=== PATIENT | female | born 1940 | race Caucasian/White ===

== ENCOUNTER → 2017-10-17 | Outpatient (CLI) | payer MEDICARE ==
[~2017-10-17] MED LIST: VITA1000 PO; ZANT150T2 PO
[2017-10-17 09:54] LABS: AUTOMATED NEUTROPHIL # 3.2 TH/MM3 (1.8-7.7); BASOPHIL # 0.1 TH/MM3 (0-0.2); BASOPHIL % 1.3 % (0.0-2.0); EOSINOPHIL # 0.3 TH/MM3 (0-0.4); EOSINOPHIL % 5.2 % (0.0-4.0); HEMATOCRIT 40.1 % (35.0-46.0); HEMOGLOBIN 13.8 GM/DL (11.6-15.3); LYMPHOCYTE # 1.7 TH/MM3 (1.0-4.8); MEAN CORPUSCULAR HEMOGLOBIN 30.2 PG (27.0-34.0); MEAN CORPUSCULAR HGB CONC 34.3 % (32.0-36.0); MEAN PLATELET VOLUME 8.2 FL (7.0-11.0); MONO % 9.4 % (0.0-8.0); MONOCYTE # 0.5 TH/MM3 (0-0.9); NEUT % 55.1 % (16.0-70.0); PLATELET COUNT 256 TH/MM3 (150-450); RED BLOOD COUNT 4.56 MIL/MM3 (4.00-5.30); RED CELL DISTRIBUTION WIDTH 14.9 % (11.6-17.2); WHITE BLOOD COUNT 5.7 TH/MM3 (4.0-11.0)
[2017-10-17 09:59] LABS: PROTHROMBIN TIME - PATIENT 10.1 SEC (9.8-11.6)
[2017-10-17 10:00] LABS: BILIRUBIN, URINE NEG (NEG); BLOOD, URINE NEG (NEG); GLUCOSE,URINE NEG (NEG); KETONE, URINE NEG (NEG); MUCUS URINE FEW /lpf (OCC); NITRITE,URINE NEG (NEG); PH, URINE 6.5 (5.0-8.5); SQUAMOUS EPITHELIAL CELL URINE 10 /hpf (0-5); URINE COLOR LIGHT-YELLOW (YELLW/STRAW); URINE LEUKOCYTE ESTERASE NEG (NEG)
--- NOTE | 2017-10-17 10:11 | RADRPT ---
EXAM DATE/TIME: 10/17/2017 09:41 [place] COMPARISON: No previous studies available for comparison. INDICATIONS : Evaluate for pneumonia, pneumothorax or communicable disease. Pre op colon resection. MEDICAL HISTORY : Carcinoma, breast. radiation therapy SURGICAL HISTORY : Hysterectomy. left lumpectomy ENCOUNTER: Initial ACUITY: 1 day PAIN SCORE: 0/10 LOCATION: Bilateral chest FINDINGS: There are mild, chronic interstitial changes. The heart and mediastinal contours are within normal li mits. The visualized osseous structures are grossly intact. CONCLUSION: 1. Chronic appearing interstitial changes. No acute abnormality. Philip Cano MD on October 17, 2017 at 10:08 Board Certified Radiologist. This report was verified electronically.
[2017-10-17 10:15] LABS: BICARBONATE 27.5 MEQ/L (21.0-32.0); CALCIUM 9.9 MG/DL (8.5-10.1); CREATININE 1.3 MG/DL (0.50-1.00)
--- NOTE | 2017-10-17 20:32 | EKG ---
Date Performed: 10/17/2017 Time Performed: 08:57:31 PTAGE: 77 years EKG: Sinus rhythm LOW QRS VOLTAGE IN PRECORDIAL LEADS BORDERLINE ECG Since the prior tracing, there has been no signif icant change PREVIOUS TRACING : 12/14/98 @1129 DOCTOR: Reinier Russo Interpretating Date/Time 10/17/2017 20:25:30
== END ==
LOC: CPRE 08:36
PROVIDERS: ATTEND Colon & Rectal Surgery
DX: Z01.810 Encounter for preprocedural cardiovascular examination (principal); Z01.818 Encounter for other preprocedural examination; Z01.812 Encounter for preprocedural laboratory examination; K57.32 Diverticulitis of large intestine without perforation or abscess without bleeding; R94.31 Abnormal electrocardiogram [ECG] [EKG]; Z79.01 Long term (current) use of anticoagulants
CPT/HCPCS: 36415; 71046; 80048; 81001; 85025; 85610; 85730; 93005

== ENCOUNTER 2017-10-24 11:37 | Inpatient (IN) | payer MEDICARE ==
[~2017-10-24] VITALS: Ht 165.1 cm; Wt 77.0 kg
[2017-10-24] VITALS (8 sets, daily range): BP systolic 111–128; BP diastolic 52–58; PULSE 64–89; RESP 16–20; TEMP 98–98.7; O2SAT 94–99
[2017-10-24] MEDS ORDERED: LACTATED RINGER'S 1000 ML INJ 2,000 ML IV ONE (12:00)
[2017-10-24] MEDS ORDERED: PHENYLEPH/NS 1000 MCG/10 ML SYR IV ONE (12:00)
[2017-10-24] MEDS ORDERED: ESMOLOL HCL 100 MG/10 ML VIAL IV ONE (12:00)
[2017-10-24] MEDS ORDERED: ROCURONIUM INJ 50 MG/5 ML SYRINGE IV PUSH ONE (12:00)
[2017-10-24] MEDS ORDERED: NEOSTIGMINE 5 MG/5 ML SYRINGE IV PUSH ONE (12:00)
[2017-10-24] MEDS ORDERED: PROPOFOL 200 MG/20 ML AMP IV ONE (12:00)
[2017-10-24] MEDS ORDERED: PHENYLEPHRINE HCL 10 MG/ML VIAL IV ONE (12:00)
[2017-10-24] MEDS ORDERED: LIDOCAINE HCL 1% PF 5 ML SYRINGE OTHER ONE (12:00)
[2017-10-24] MEDS ORDERED: DEXAMETHASONE SOD PHOS 4 MG/ML VIAL IV ONE (12:00)
[2017-10-24] MEDS ORDERED: ONDANSETRON HCL 4 MG/2 ML VIAL IV ONE (12:00)
[2017-10-24] MEDS ORDERED: GLYCOPYRROLATE 1 MG/5 ML SYRINGE IV PUSH ONE (12:00)
[2017-10-24] MEDS ORDERED: metroNIDAZOLE 500 MG INJ 100 ML IV ONE (12:32)
[2017-10-24] MEDS ORDERED: ceFAZolin INJ 1,000 MG VIAL ONE (12:32)
[2017-10-24] MEDS ORDERED: SODIUM CHLORIDE 0.9% INJ 100 ML ONE (12:32)
[2017-10-24] MEDS ORDERED: ALVIMOPAN 12 MG CAPSULE ONE (12:32)
[2017-10-24] MEDS ORDERED: ACETAMINOPHEN 1000 MG/100 ML 100 ML IV ONE (13:20)
[2017-10-24] MEDS ORDERED: Post-op Orders (for Pharmacy) XX ONE (16:00)
[2017-10-24] MEDS ORDERED: POTASSIUM CHLOR 40 MEQ PREMIX 100 ML IV PRN (16:00)
[2017-10-24] MEDS ORDERED: NALOXONE HCL 0.4 MG/ML AMP IV PUSH PRN (16:00)
[2017-10-24] MEDS ORDERED: KETOROLAC TROMETHAMINE 30 MG/ML (IVP) VIAL IVP PRN (16:00)
[2017-10-24] MEDS ORDERED: MORPHINE SULFATE 30 MG/30 ML PCA IV SCH (16:00)
[2017-10-24] MEDS ORDERED: BENZOCAINE 6 MG/MENTHOL 10 MG LOZENGE BUCCAL PRN (16:00)
[2017-10-24] MEDS ORDERED: ONDANSETRON HCL 4 MG/2 ML VIAL IV PUSH PRN (16:00)
[2017-10-24] MEDS ORDERED: POTASSIUM CHLOR 20 MEQ PREMIX 100 ML IV PRN (16:00)
[2017-10-24] MEDS ORDERED: SODIUM CHLORIDE 0.9% FLUSH 10 ML FLUSH IV FLUSH PRN (16:00)
[2017-10-24] MEDS ORDERED: ZOLPIDEM TARTRATE 5 MG TAB PO PRN (16:00)
[2017-10-24] MEDS ORDERED: ENALAPRILAT 1.25 MG/ML VIAL IV PUSH PRN (16:00)
[2017-10-24] MEDS ORDERED: MIDAZOLAM HCL 2 MG/2 ML VIAL ONE (16:20)
[2017-10-24] MEDS ORDERED: *morphine SULFATE 4 MG/ML PERIprocedure ONLY ONE ×2 (16:32→17:35)
[2017-10-24 16:42] LABS: AUTOMATED NEUTROPHIL # 8.3 TH/MM3 (1.8-7.7); BASOPHIL # 0.1 TH/MM3 (0-0.2); BASOPHIL % 0.6 % (0.0-2.0); EOSINOPHIL % 0.4 % (0.0-4.0); HEMATOCRIT 34.8 % (35.0-46.0); HEMOGLOBIN 12.1 GM/DL (11.6-15.3); LYMPH % 7.2 % (9.0-44.0); LYMPHOCYTE # 0.7 TH/MM3 (1.0-4.8); MEAN CELL VOLUME 87.7 FL (80.0-100.0); MEAN CORPUSCULAR HEMOGLOBIN 30.4 PG (27.0-34.0); MEAN CORPUSCULAR HGB CONC 34.6 % (32.0-36.0); MEAN PLATELET VOLUME 7.8 FL (7.0-11.0); MONO % 8.3 % (0.0-8.0); MONOCYTE # 0.8 TH/MM3 (0-0.9); NEUT % 83.5 % (16.0-70.0); PLATELET COUNT 210 TH/MM3 (150-450); RED BLOOD COUNT 3.97 MIL/MM3 (4.00-5.30)
[2017-10-24 17:07] LABS: BICARBONATE 24.6 MEQ/L (21.0-32.0); CALCIUM 8.4 MG/DL (8.5-10.1); CREATININE 1.15 MG/DL (0.50-1.00)
[2017-10-24] MEDS: D5-LR + KCL 20 MEQ INJ 1,000 ML IV SCH ×2 (17:18→21:37)
[2017-10-24] MEDS: METOCLOPRAMIDE HCL 10 MG/2 ML VIAL IVS SCH (17:38)
[2017-10-24] MEDS ORDERED: DO NOT ADM ANY ANTICOAGULANT DRUGS PRN (19:30)
[2017-10-24] MEDS: FUROSEMIDE 20 MG/2 ML VIAL IV PUSH SCH (20:27)
[2017-10-24] MEDS: SODIUM CHLORIDE 0.9% FLUSH 10 ML FLUSH IV FLUSH SCH (20:27)
[2017-10-24] MEDS: ceFAZolin 2 GM PREMIX 50 ML IV SCH (21:37)
[2017-10-24] MEDS: metroNIDAZOLE 500 MG INJ 100 ML IV SCH (21:38)
[2017-10-24] MEDS: PCA - TOTAL MG MORPHINE DELIVERED PER SHIFT SCH ×2 (22:00→22:10)
[2017-10-25] VITALS (20 sets, daily range): BP systolic 105–118; BP diastolic 53–64; PULSE 74–103; RESP 14–20; TEMP 96.5–98.6; O2SAT 91–94
[2017-10-25] MEDS: METOCLOPRAMIDE HCL 10 MG/2 ML VIAL IVS SCH ×4 (01:31→18:24)
[2017-10-25] MEDS: ceFAZolin 2 GM PREMIX 50 ML IV SCH ×3 (05:25→19:44)
[2017-10-25] MEDS: metroNIDAZOLE 500 MG INJ 100 ML IV SCH ×3 (05:26→19:44)
[2017-10-25] MEDS: D5-LR + KCL 20 MEQ INJ 1,000 ML IV SCH ×4 (05:27→23:00)
[2017-10-25] MEDS: PCA - TOTAL MG MORPHINE DELIVERED PER SHIFT SCH ×3 (06:00→19:55)
[2017-10-25 06:09] LABS: AUTOMATED NEUTROPHIL # 8.1 TH/MM3 (1.8-7.7); BASOPHIL % 0.2 % (0.0-2.0); HEMOGLOBIN 11.1 GM/DL (11.6-15.3); LYMPHOCYTE # 0.6 TH/MM3 (1.0-4.8); MEAN CELL VOLUME 88.3 FL (80.0-100.0); MEAN CORPUSCULAR HEMOGLOBIN 30.7 PG (27.0-34.0); MEAN CORPUSCULAR HGB CONC 34.7 % (32.0-36.0); MEAN PLATELET VOLUME 8.1 FL (7.0-11.0); MONO % 11.9 % (0.0-8.0); MONOCYTE # 1.2 TH/MM3 (0-0.9); NEUT % 81.9 % (16.0-70.0); PLATELET COUNT 206 TH/MM3 (150-450); RED BLOOD COUNT 3.62 MIL/MM3 (4.00-5.30); WHITE BLOOD COUNT 9.9 TH/MM3 (4.0-11.0)
[2017-10-25 06:16] LABS: BICARBONATE 27.6 MEQ/L (21.0-32.0); CALCIUM 8.2 MG/DL (8.5-10.1); CREATININE 1.61 MG/DL (0.50-1.00)
[2017-10-25] MEDS: FUROSEMIDE 20 MG/2 ML VIAL IV PUSH SCH ×2 (09:53→19:44)
[2017-10-25] MEDS: SODIUM CHLORIDE 0.9% FLUSH 10 ML FLUSH IV FLUSH SCH ×2 (09:53→19:50)
[2017-10-25] MEDS: PANTOPRAZOLE SODIUM 40 MG VIAL IVP SCH (09:53)
[2017-10-25] MEDS: ALVIMOPAN 12 MG CAPSULE PO SCH ×2 (09:54→19:43)
--- NOTE | 2017-10-25 11:38 | MP ---
cc: JAY RUSSELL DATE OF SURGERY 10/24/2017 PREOPERATIVE DIAGNOSIS Diverticulitis. POSTOPERATIVE DIAGNOSIS Diverticulitis. PROCEDURE Cystoscopy, bilateral ureteral catheter insertion. SURGEON Drew. ANESTHESIA General endotracheal tube. FLUIDS 100 cc crystalloid. ESTIMATED BLOOD LOSS No blood loss. COMPLICATIONS No complications. INDICATION FOR PROCEDURE This is a 77-year-old female with diverticulitis, elected to undergo colectomy by Dr. Trevizo. Request was made for bilateral ureteral catheter insertion. DETAILS OF PROCEDURE The patient was brought to the operating room, identified by myself and placed in the dorsal lithotomy position. She was prepped and draped in the usual sterile fashion, received pre-procedure antibiotics and general endotracheal tube anesthesia was administered. A 22 Azeri cystoscope was inserted in the bladder. Pancystoscopy did not reveal any abnormalities. The left ureteral orifice was identified. A 5 Azeri open-ended catheter was inserted in the left ureteral orifice without difficulty. This was repeated on the right side. The Anne was inserted and the catheters were attached to the Anne. She tolerated the procedure well. Jay Russell SWT/BT /2:09 PM /11:26 AM
--- NOTE | 2017-10-25 13:43 | MP ---
cc: JANIE TREVIZO M.D., UKONU O. 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 PROCEDURE 1. Sigmoid colectomy low anterior resection 2. Mobilization of the splenic flexure 3. Omental flap 4. Colonic washout 5. Intraoperative colonoscopy 6. Small bowel resection SURGEON Dr. Trevizo NEGATIVE TURNER APPRENTICE Dr. Quevedo ANESTHESIA General endotracheal ESTIMATED BLOOD LOSS 300 cc OPERATING TIME One hour and 50 minutes. OPERATIVE FINDINGS This patient had a complex case of diverticulitis back in early July of 2017. At that time, we were able to get her through that bout of diverticulitis with what appeared to be a pericolonic abscess and possibly a small bowel fistula. She recovered nicely without any problems post treatment and her CT scans improved and no obvious fistula between her small bowel and colon was seen, nor a fistula between the bladder and the colon. She did have significant diverticular disease, however and she had tethering of that small bowel loop to the colon on the CT scan and she had an incomplete colonoscopy due to her diverticular disease and I felt that elective surgery was indicated even though this was her first attack of diverticulitis. At surgery, she was found to have an extremely inflamed loop of sigmoid colon stuck densely to the dome of the bladder and a loop of small bowel stuck in a small portion densely to this process. That was dissected free and after probing the serosa, it appeared as if there could have been a fistula at some point, although no fistula was definitely identified. Once the sigmoid colon was fully removed, we did inspect the specimen and there did appear to be a giant diverticula present in the sigmoid colon which could have accounted for what appeared to be an abscess on her initial CT scans. Nevertheless, there was no bladder fistula present. Dr. Travis Russell did bilateral ureteral catheters and cystoscopy on her. The full left colon and splenic flexure were mobilized and a omental flap was mobilized and placed over the pelvis between the bladder and the anastomosis at the end of the procedure. The remainder of the exploration of the abdominal cavity including the liver, the gallbladder, stomach, colon and small bowel was all apparently normal. A short small bowel resection of approximately 2 inches was done of this area where we felt that there was a possible small bowel fistula at one point. We felt that it was safest to remove this area. The gallbladder was distended, but no stones could be palpated. OPERATIVE TECHNIQUE The patient was placed on the table in the supine position. After adequate general endotracheal anesthesia, the legs were placed in the perineal lithotomy position. The abdomen and perineum were prepped and draped in the usual manner. A transverse infraumbilical skin incision was made and carried down through the subcutaneous tissue and the rectus muscles and the peritoneal cavity was entered with the above-mentioned findings. The sigmoid colon was mobilized along its peritoneal reflection and the left ureter was identified and protected at all times. The descending colon was likewise mobilized up to and including the splenic flexure. The splenic flexure was mobilized and the lesser sac was entered and the omentum was from the transverse colon with electrocautery. There was a small tear approximately 1 cm in the tip of the capsule of the spleen and this was treated with electrocautery and a piece of hemostatic agent was placed on that area and no further bleeding occurred from that. We identified the diverticular segment and it was quite stuck to the bladder and the small bowel. The small bowel was dissected free of this and inspected and there was no immediate fistula definitely seen at that time. We then dissected the sigmoid colon from the dome of the bladder with electrocautery not entering the colon or the bladder. There was a small 1-cm abscess that was seen and aspirated. Other than that, no gross abscesses were found. The sigmoid colon was dissected free of the left ovary and tube as well and off of the left ureter which contained the ureteral catheter. Once this was free, the superior hemorrhoidal vessels were doubly clamped, cut and doubly ligated along with the inferior mesenteric vein. Once that was done, the retrorectal space was entered and the dissection was taken down posterior to the rectum to the pelvic floor and then the lateral pelvic peritoneum was incised bilaterally. The anterior cul-de-sac was not dissected or developed and the anastomosis in the rectum was done in the upper portion of the rectum. The upper portion of the rectal mesentery was clamped, cut and ligated and the rectum was cleared and a pursestring stapler was placed and the rectum was divided. Once this was done, a choice for division of the sigmoid colon was done and the remainder of the mesentery was clamped, cut and ligated and the sigmoid colon was cleared. The quality of the sigmoid colon, at this point, was quite good. Pursestring stapling device was placed on the colon and the colon was divided and the specimen was removed from the table. As mentioned above, there is no definite fistula seen, however, there was a large diverticulum present in the sigmoid colon. Next, the sigmoid colon and transverse colon and the ascending colon were cleaned with 500 cc of saline solution and aspirated until the colon was clean. The anvil of the Ethicon 29 EEA was then placed in the sigmoid colon and the proximal pursestring was tied. Dr. Quevedo then went below and placed the EEA instrument transanally and it was brought out, however, the proximal 2 cm of the rectum was too narrow to allow the 29 EEA and that proximal 2 cm of rectum was removed and another pursestring was placed allowing the EEA instrument to be placed in the rectum. Dr. Quevedo then placed the EEA instrument there. The distal pursestring was tied and the instrument was connected, closed and fired creating a circular anastomosis. There was no tension on the anastomosis and blood supply was excellent. Dr. Quevedo then did colonoscopy to the cecum and the colon was normal. No polyps, no carcinoma seen. We then leak tested the anastomosis with air in the rectum with saline solution in the pelvis and no air leaks were identified. Again, the hemostasis was excellent throughout and was controlled with electrocautery and a ligature. The pelvis was irrigated thoroughly with 2-3 liters of saline solution, aspirated dry and the previously mobilized omentum was brought down the left colic gutter and placed in the pelvis between the bladder dissection and the colorectal anastomosis. We then turned our attention once again to the small bowel that had been stuck to this process and we reinspected and it did appear to be a subserosal tract, but no stool came from this. I decided to resect this area and the mesentery of the small bowel was divided next to the small bowel for approximately 2 inches and then the proximal small bowel was divided with a MIGUEL stapling device and the distal small bowel was divided between Christiano clamps and a 2 inches segment of small bowel was removed. Upon inspection after the case, it appeared as if there may have been a fistula to the mucosa of that small bowel, although it was not definitive. Nevertheless, a functional end-to-end anastomosis was done with an Ethicon MIGUEL 55 stapling device and the enterotomy was closed with a TX 60 blue staple height stapler. The mesentery was approximated with 3-0 Vicryl suture. Once this was done, the abdominal cavity was irrigated thoroughly again with saline solution, aspirated dry and inspected for hemostasis. The bowels were replaced the abdominal cavity in an water pollution scientist manner and the abdominal cavity was then closed in layers using a running double-stranded #1 PDS for the posterior rectus sheath. The muscle layer was irrigated thoroughly with saline solution, aspirated dry and then the anterior rectus sheath was closed with a double-stranded #1 PDS as well. The skin was closed with skin danielle because of the infectious nature of this process and it should be mentioned that a flat Wilman drain had been previously placed in the retrorectal space and brought out through a separate stab wound in the left lower quadrant. Dressings were applied. Sponge, needle and instrument counts were poor as correct. The estimated blood loss was 300 cc. Operating time was one hour and 50 minutes. The patient tolerated the procedure well and left the operating room in good condition. MD KRYSTINA Currie/MELISSA /5:34 PM /1:10 PM
[2017-10-25] MEDS ORDERED: D5-NS + KCL 20 MEQ INJ 1,000 ML IV SCH (14:00)
--- NOTE | 2017-10-25 16:33 | HHI.PR ---
Subjective Remarks No N or V. OOB walking today. No BMs Objective Vital Signs Date Time Temp Pulse Resp B/P (MAP) Pulse Ox O2 Delivery O2 Flow Rate FiO2 10/25/17 16:00 92 10/25/17 15:00 98.5 94 18 109/55 (73) 93 10/25/17 15:00 96 10/25/17 14:00 94 10/25/17 13:59 16 10/25/17 13:00 103 10/25/17 12:00 83 10/25/17 11:00 95 10/25/17 11:00 98.6 90 16 111/54 (73) 94 10/25/17 10:00 85 10/25/17 09:00 78 10/25/17 08:00 98.3 93 14 105/54 (71) 94 10/25/17 08:00 82 10/25/17 07:00 93 10/25/17 06:21 96 10/25/17 06:00 18 10/25/17 05:23 79 10/25/17 04:20 101 10/25/17 03:50 98.0 87 20 111/53 (72) 94 10/25/17 03:12 74 10/25/17 02:00 74 10/25/17 01:44 89 10/25/17 00:39 77 10/24/17 23:40 73 10/24/17 23:30 98.2 89 20 111/52 (71) 94 10/24/17 22:21 96 Nasal Cannula 2.00 10/24/17 22:10 19 10/24/17 22:00 65 10/24/17 22:00 19 10/24/17 21:27 69 10/24/17 20:00 64 10/24/17 19:20 98.0 76 19 128/58 (81) 98 18 19:20 67 10/24/17 18:20 98.7 68 16 117/56 (76) 99 10/24/17 17:45 98.2 81 16 118/58 (78) 98 Nasal Cannula 2 10/24/17 17:30 71 16 124/60 (81) 98 Nasal Cannula 2 10/24/17 17:19 16 10/24/17 17:15 68 18 115/57 (76) 99 Nasal Cannula 2 10/24/17 17:00 84 18 120/56 (77) 99 Nasal Cannula 3 10/24/17 16:45 69 18 112/53 (72) 100 Nasal Cannula 3 I/O 10/24/17 10/24/17 10/24/17 10/25/17 10/25/17 10/25/17 07:00 15:00 23:00 07:00 15:00 23:00 Intake Total 3150 ml 570 ml Output Total 605 ml 595 ml Balance 2545 ml -25 ml Intake Oral 420 ml IV Total 3150 ml 150 ml Output Urine Total 235 ml 525 ml Drainage Total 70 ml 70 ml Estimated Blood Loss 300 ml Result Diagram: 10/25/1744410/25/17444 Objective Remarks VS-S Abd: soft,dressing dry. Ureteral catheter removed. I&Os and labs OK Assessment and Plan Assessment and Plan Stable POD#1 Transfer, D/C gonzalez in AM. IV to 125/hr Gabe Trevizo MD Oct 25, 2017 16:33
[2017-10-26] VITALS (7 sets, daily range): BP systolic 116–148; BP diastolic 60–71; PULSE 100–124; RESP 15–24; TEMP 96.9–99.2; O2SAT 91–95
[2017-10-26] MEDS: METOCLOPRAMIDE HCL 10 MG/2 ML VIAL IVS SCH ×5 (00:37→23:36)
[2017-10-26] MEDS: metroNIDAZOLE 500 MG INJ 100 ML IV SCH ×3 (04:52→22:06)
[2017-10-26] MEDS: ceFAZolin 2 GM PREMIX 50 ML IV SCH ×3 (05:51→21:23)
[2017-10-26] MEDS: PCA - TOTAL MG MORPHINE DELIVERED PER SHIFT SCH (05:51)
[2017-10-26 06:38] LABS: AUTOMATED NEUTROPHIL # 8.3 TH/MM3 (1.8-7.7); BASOPHIL # 0.1 TH/MM3 (0-0.2); BASOPHIL % 0.7 % (0.0-2.0); EOSINOPHIL # 0.2 TH/MM3 (0-0.4); EOSINOPHIL % 1.4 % (0.0-4.0); HEMATOCRIT 31.7 % (35.0-46.0); HEMOGLOBIN 10.8 GM/DL (11.6-15.3); LYMPHOCYTE # 1.1 TH/MM3 (1.0-4.8); MEAN CELL VOLUME 88.2 FL (80.0-100.0); MEAN CORPUSCULAR HEMOGLOBIN 30.2 PG (27.0-34.0); MEAN CORPUSCULAR HGB CONC 34.3 % (32.0-36.0); MEAN PLATELET VOLUME 8.2 FL (7.0-11.0); MONO % 9.6 % (0.0-8.0); NEUT % 78.3 % (16.0-70.0); PLATELET COUNT 205 TH/MM3 (150-450); RED BLOOD COUNT 3.59 MIL/MM3 (4.00-5.30); RED CELL DISTRIBUTION WIDTH 14.3 % (11.6-17.2); WHITE BLOOD COUNT 10.6 TH/MM3 (4.0-11.0)
[2017-10-26 07:00] LABS: BICARBONATE 30.2 MEQ/L (21.0-32.0); CALCIUM 8.3 MG/DL (8.5-10.1); CREATININE 1.39 MG/DL (0.50-1.00)
[2017-10-26] MEDS: D5-LR + KCL 20 MEQ INJ 1,000 ML IV SCH ×2 (07:23→17:28)
[2017-10-26] MEDS: ALVIMOPAN 12 MG CAPSULE PO SCH ×2 (08:55→19:32)
[2017-10-26] MEDS: FUROSEMIDE 20 MG/2 ML VIAL IV PUSH SCH ×2 (08:57→19:32)
[2017-10-26] MEDS: PANTOPRAZOLE SODIUM 40 MG VIAL IVP SCH (08:57)
[2017-10-26] MEDS: SODIUM CHLORIDE 0.9% FLUSH 10 ML FLUSH IV FLUSH SCH ×2 (08:58→19:32)
--- NOTE | 2017-10-26 10:53 | HHI.PR ---
Subjective Remarks No N or V. OOB walking today. No BMs. Anne out. Urinating well. Objective Vital Signs Date Time Temp Pulse Resp B/P (MAP) Pulse Ox O2 Delivery O2 Flow Rate FiO2 10/26/17 08:00 98.7 118 22 129/60 (83) 93 10/26/17 05:51 18 10/26/17 04:53 18 10/26/17 04:00 97.1 105 15 116/71 (86) 91 10/26/17 00:00 96.9 111 15 119/62 (81) 91 10/25/17 20:00 96.5 102 15 118/64 (82) 91 10/25/17 19:55 18 10/25/17 19:37 18 10/25/17 16:00 92 10/25/17 15:00 98.5 94 18 109/55 (73) 93 10/25/17 15:00 96 10/25/17 14:00 94 10/25/17 13:59 16 10/25/17 13:00 103 10/25/17 12:00 83 10/25/17 11:00 95 10/25/17 11:00 98.6 90 16 111/54 (73) 94 I/O 10/25/17 10/25/17 10/25/17 10/26/17 10/26/17 10/26/17 07:00 15:00 23:00 07:00 15:00 23:00 Intake Total 570 ml 2210 ml 1400 ml Output Total 595 ml 1485 ml 1600 ml 75 ml Balance -25 ml 725 ml -200 ml -75 ml Intake Oral 420 ml 960 ml 450 ml IV Total 150 ml 1250 ml 950 ml Output Urine Total 525 ml 1400 ml 1600 ml Drainage Total 70 ml 85 ml 0 ml 75 ml # Bowel Movements 0 Result Diagram: 10/26/17 0549 10/26/17 0549 Objective Remarks VS-S Abd: soft,dressing removed,wound clean and no redness. I&Os and labs OK Assessment and Plan Assessment and Plan Stable POD#2 FLD, IVs to 75/hr,ambulate. Gabe Trevizo MD Oct 26, 2017 10:53
[2017-10-26] MEDS: ACETAMINOPHEN/HYDROcodone 325 MG/5 MG TAB PO PRN ×3 (14:17→23:39)
[2017-10-27 00:17] VITALS: BP 134/62; PULSE 99; RESP 18; TEMP 97.8; O2SAT 97
[2017-10-27] MEDS: ceFAZolin 2 GM PREMIX 50 ML IV SCH ×3 (05:03→21:52)
[2017-10-27] MEDS: ACETAMINOPHEN/HYDROcodone 325 MG/5 MG TAB PO PRN ×5 (05:05→23:51)
[2017-10-27] MEDS: D5-LR + KCL 20 MEQ INJ 1,000 ML IV SCH ×2 (05:05→19:39)
[2017-10-27] MEDS: METOCLOPRAMIDE HCL 10 MG/2 ML VIAL IVS SCH ×4 (05:05→23:13)
[2017-10-27] MEDS: metroNIDAZOLE 500 MG INJ 100 ML IV SCH ×3 (05:50→23:12)
[2017-10-27 08:00] VITALS: BP 121/66; PULSE 95; RESP 18; TEMP 97.2; O2SAT 93
[2017-10-27] MEDS: PANTOPRAZOLE SODIUM 40 MG VIAL IVP SCH (08:25)
[2017-10-27] MEDS: ALVIMOPAN 12 MG CAPSULE PO SCH ×2 (08:25→19:38)
[2017-10-27] MEDS: SODIUM CHLORIDE 0.9% FLUSH 10 ML FLUSH IV FLUSH SCH ×2 (08:26→19:38)
[2017-10-27] MEDS: FUROSEMIDE 20 MG/2 ML VIAL IV PUSH SCH (08:26)
[2017-10-27 12:00] VITALS: BP 118/64; PULSE 97; RESP 17; TEMP 97.5; O2SAT 93
[2017-10-27 16:00] VITALS: BP 149/64; PULSE 100; RESP 18; TEMP 98.6; O2SAT 96
[2017-10-27 20:00] VITALS: BP 131/66; PULSE 96; RESP 18; TEMP 97.4; O2SAT 98
[2017-10-28 00:24] VITALS: BP 132/64; PULSE 89; RESP 18; TEMP 97.8; O2SAT 97
[2017-10-28] MEDS: METOCLOPRAMIDE HCL 10 MG/2 ML VIAL IVS SCH (05:19)
[2017-10-28] MEDS: ceFAZolin 2 GM PREMIX 50 ML IV SCH (05:19)
[2017-10-28] MEDS: ACETAMINOPHEN/HYDROcodone 325 MG/5 MG TAB PO PRN (05:20)
[2017-10-28] MEDS: metroNIDAZOLE 500 MG INJ 100 ML IV SCH (06:16)
[2017-10-28 08:00] VITALS: BP 131/90; PULSE 88; RESP 20; TEMP 97.2; O2SAT 93
[2017-10-28] MEDS: ALVIMOPAN 12 MG CAPSULE PO SCH (08:40)
[2017-10-28] MEDS: PANTOPRAZOLE SODIUM 40 MG VIAL IVP SCH (08:40)
[2017-10-28] MEDS: SODIUM CHLORIDE 0.9% FLUSH 10 ML FLUSH IV FLUSH SCH (08:41)
[2017-10-28] MEDS: D5-LR + KCL 20 MEQ INJ 1,000 ML IV SCH (08:41)
--- NOTE | 2017-10-28 09:12 | HHI.DCPOC ---
Discharge Care Plan Diagnosis: (1) Diverticulitis large intestine (2) S/P colon resection Your Health Problems Are: Incision/Drains Appetite Changes Irregular Bowel Function Exercise Tolerance Goals to Promote Your Health * To prevent worsening of your condition and complications * To maintain your health at the optimal level Directions to Meet Your Goals Take your medications as prescribed Follow your dietary instruction Follow activity as directed Keep your appointments as scheduled Take your immunizations and boosters as scheduled If your symptoms worsen call your PCP, if no PCP go to Urgent Care Center or Emergency Room Smoking is Dangerous to Your Health. Avoid second hand smoke Call the 24-hour hour crisis hotline for domestic abuse at Gabe Trevizo MD Oct 28, 2017 09:12
== END 2017-10-28 10:58 | disposition home or self-care (01) | DRG 331 ==
LOC: HSDI 11:37 → HCPC 18:16 → N07A 10-25 19:45
PROVIDERS: ADMIT Colon & Rectal Surgery; ATTEND Colon & Rectal Surgery
PROC: 0DJD8ZZ Inspection of Lower Intestinal Tract, Via Natural or Artificial Opening Endoscopic (ICD-10-PCS; 2017-10-24)
PROC: 0T9880Z Drainage of Bilateral Ureters with Drainage Device, Via Natural or Artificial Opening Endoscopic (ICD-10-PCS; 2017-10-24)
PROC: 0TJB8ZZ Inspection of Bladder, Via Natural or Artificial Opening Endoscopic (ICD-10-PCS; 2017-10-24)
PROC: 0DTN0ZZ Resection of Sigmoid Colon, Open Approach (ICD-10-PCS; principal; 2017-10-24 13:35)
PROC: 0DBB0ZZ Excision of Ileum, Open Approach (ICD-10-PCS; 2017-10-24 13:35)
DX: K57.32 Diverticulitis of large intestine without perforation or abscess without bleeding (principal); N18.3 Chronic kidney disease, stage 3 (moderate); K21.9 Gastro-esophageal reflux disease without esophagitis; K66.0 Peritoneal adhesions (postprocedural) (postinfection); Z87.891 Personal history of nicotine dependence; Z85.3 Personal history of malignant neoplasm of breast
CPT/HCPCS: 80048; 85025; 86850; 86900; 86901; 88307; 94150; C9113; J0131; J0690; J1100; J1885; J1940; J2250; J2270; J2370; J2405; J2710; J2765; J3010; J3480; J7120